=== PATIENT | male | born 1940 | race Caucasian/White ===

== ENCOUNTER → 2016-12-10 | Emergency (ER) | payer OTHER ==
[~2016-12-10] MED LIST: ASPIRIN 81 MG CHEWABLE TAB PO ONE; CEPHALEXIN 500MG PREPACK#4 BTL TAKEHOME ONE
--- NOTE | 2016-12-10 17:54 | EDPHY ---
H & P Stated Complaint: L VARICOSE VEIN NOW RED AND SWOLLEN HPI/ROS: CHIEF COMPLAINT: HISTORY OF PRESENT ILLNESS: REVIEW OF SYSTEMS: A ten point review of systems was performed and is negative with the exception of the items mentioned in the HPI. - Personal History Current Tetanus/Diphtheria Vaccine: Yes - Medical/Surgical History Hx Asthma: No Hx Chronic Respiratory Disease: No Hx Diabetes: No Hx Cardiac Disease: No Hx Renal Disease: No Hx Cirrhosis: No Hx Alcoholism: No Hx HIV/AIDS: No Hx Splenectomy or Spleen Trauma: No Other PMH: HTN - Social History Smoking Status: Never smoked - Physical Exam Exam: General Appearance: Alert. Vital signs reviewed. Blood pressure 132/95 Eyes: Pupils equal and round, no conjunctival injection, no discharge. Anicteric. ENT, Mouth: Mucous membranes are moist, no oropharyngeal erythema or edema. Neck: No lymphadenopathy, supple. Respiratory: Lungs are clear to auscultation; no wheezes, rales, or rhonchi. Cardiovascular: Regular rate and rhythm; no murmur, rub, or gallop. Gastrointestinal: Abdomen is soft and nontender, no masses or organomegaly, bowel sounds normal. Skin: Warm and dry, no rashes on exposed skin, normal color. Back: Nontender to palpation over the thoracolumbar spine. No CVAT. Extremities: No lower extremity edema, no calf tenderness or swelling. Neurological: Alert and oriented. Moving all four extremities easily and equally. Psychiatric: Normal affect. Constitutional: Initial Vital Signs Temperature (C) 36.6 C 12/10/16 17:45 Heart Rate 75 12/10/16 17:45 Respiratory Rate 20 12/10/16 17:45 Blood Pressure 132/95 H 12/10/16 17:45 O2 Sat (%) 96 12/10/16 17:45 O2 Delivery Mode Room Air Allergies/Adverse Reactions: No Known Allergies Allergy (Unverified 12/10/16 17:45) Home Medications: Medication Instructions Recorded Lisinopril 12/10/16 Departure - Departure Referrals: ANDREI ISSA [Other] - As per Instructions Physician Review and Approval Statement: 12/10/16 17:54 Portions of this note were transcribed by the chief medical director. I, Dr. Lily Lopez, personally performed the history, physical exam, and medical decision- making; and confirmed the accuracy of the information in the transcribed note.
--- NOTE | 2016-12-10 18:23 | EDPHY ---
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 Approximately 4 days ago he noticed erythema and swelling along the course of the vein. This is progressively worsened and become painful. He has had no fever. No nausea or vomiting. No discomfort in the calf or thigh or behind the leg. No shortness of breath or chest pain. He went to [facility] urgent care who referred him to the emergency department. REVIEW OF SYSTEMS: Aside from elements discussed in the HPI, a comprehensive 10-point review of systems was reviewed and is negative. PAST MEDICAL HISTORY: No history of DVTs or PEs. Hypertension. On lisinopril. Takes a baby aspirin. SOCIAL HISTORY: Nonsmoker. Active. VITAL SIGNS: see nurse's notes. GENERAL: Well-developed, well-nourished, in no acute distress. HEENT: Normal, no discharge or icterus, moist mucous membranes. Neck: supple, FROM. LUNGS: Clear to auscultation bilaterally, no wheezes, rhonchi or rales. CARDIAC: Regular rate and rhythm, no rubs, murmurs or gallops. ABDOMEN: Soft, nontender, nondistended, bowel sounds normal. BACK: No CVA tenderness. No vertebral tenderness. EXTREMITIES: Left lower extremity: Area of swelling and erythema in a linear distribution along the medial left lower extremity extending from mid calf to proximal thigh. Area is swollen, erythematous, palpable thrombus in the vein, and tender to palpation. 1+ pitting edema of the left lower extremity. Left calf and foot are swollen visibly in comparison to the right. NEURO: Alert and oriented, grossly nonfocal. SKIN: Warm and dry, no rash. - Personal History Current Tetanus/Diphtheria Vaccine: Yes - Medical/Surgical History Hx Asthma: No Hx Chronic Respiratory Disease: No Hx Diabetes: No Hx Cardiac Disease: No Hx Renal Disease: No Hx Cirrhosis: No Hx Alcoholism: No Hx HIV/AIDS: No Hx Splenectomy or Spleen Trauma: No Other PMH: HTN - Social History Smoking Status: Never smoked Constitutional: Initial Vital Signs Temperature (C) 36.6 C 12/10/16 17:45 Heart Rate 75 12/10/16 17:45 Respiratory Rate 20 12/10/16 17:45 Blood Pressure 132/95 H 12/10/16 17:45 O2 Sat (%) 96 12/10/16 17:45 O2 Delivery Mode Room Air Allergies/Adverse Reactions: No Known Allergies Allergy (Unverified 12/10/16 17:45) Home Medications: Medication Instructions Recorded Cephalexin [Keflex (RX)] 500 mg PO QID 6 Days 12/10/16 Lisinopril 12/10/16 ED Images - Extremities Legs Front/Back: 1 - erythema, tenderness, swelling, slight warmth Medical Decision Making - Diagnostics Imaging: Imaging Impressions Extremity Venous Study 12/10/16 18:18 Impression: No deep venous thrombosis left leg. Superficial thrombus in a branch from the greater saphenous vein in the mid thigh. Results called and discussed with Chioma Matthews MD at 12/10/2016 19:14. I discussed the results with the radiologist and reviewed the images myself. ED Course/Re-evaluation: 76-year-old male presents to the emergency department with a significant superficial thrombophlebitis and erythema on his left leg. The left lower leg is swollen. Ultrasound was performed to evaluate for any clot involving the deep system. This was negative. Patient was discharged on Keflex to use for cellulitis. He was also instructed regarding appropriate therapy for superficial thrombophlebitis and was asked to increase his aspirin for several days. He will follow up with his primary care physician next week. Differential Diagnosis: Differential diagnosis for the patient's primary complaint of leg swelling , pain, and redness was considered including but not limited to cellulitis, superficial thrombophlebitis, cellulitis, lymphangitic spread, deep space infection, and DVT. - Data Points Laboratory Results: Laboratory Results 12/10/16 18:41 12/10/16 18:41 12/10/16 12/10/16 18:41 18:41 WBC 6.88 10^3/uL 10^3/uL (3.80-9.50) RBC 4.28 10^6/uL L 10^6/uL (4.40-6.38) Hgb 13.6 g/dL L g/dL (13.7-17.5) Hct 41.1 % % (40.0-51.0) MCV 96.0 fL fL (81.5-99.8) MCH 31.8 pg pg (27.9-34.1) MCHC 33.1 g/dL g/dL (32.4-36.7) RDW 14.1 % % (11.5-15.2) Plt Count 219 10^3/uL 10^3/uL (150-400) MPV 9.9 fL fL (8.7-11.7) Neut % (Auto) 58.3 % % (39.3-74.2) Lymph % (Auto) 27.2 % % (15.0-45.0) Mcmullen % (Auto) 9.6 % % (4.5-13.0) Eos % (Auto) 4.4 % % (0.6-7.6) Baso % (Auto) 0.4 % % (0.3-1.7) Nucleat RBC Rel Count 0.0 % % (0.0-0.2) Absolute Neuts (auto) 4.01 10^3/uL 10^3/uL (1.70-6.50) Absolute Lymphs (auto) 1.87 10^3/uL 10^3/uL (1.00-3.00) Absolute Monos (auto) 0.66 10^3/uL 10^3/uL (0.30-0.80) Absolute Eos (auto) 0.30 10^3/uL 10^3/uL (0.03-0.40) Absolute Basos (auto) 0.03 10^3/uL 10^3/uL (0.02-0.10) Absolute Nucleated RBC 0.00 10^3/uL 10^3/uL (0-0.01) Immature Gran % 0.1 % % (0.0-1.1) Immature Gran # 0.01 10^3/uL 10^3/uL (0.00-0.10) Sodium 137 mEq/L mEq/L (134-144) Potassium 4.5 mEq/L mEq/L (3.5-5.2) Chloride 107 mEq/L mEq/L (97-110) Carbon Dioxide 20 mEq/l L mEq/l (22-31) Anion Gap 10 mEq/L mEq/L (8-16) BUN 21 mg/dL mg/dL (7-23) Creatinine 1.0 mg/dL mg/dL (0.7-1.3) Estimated GFR > 60 Glucose 88 mg/dL mg/dL (70-100) Calcium 9.0 mg/dL mg/dL (8.5-10.4) Medications Given: Discontinued Medications Aspirin (Aspirin) 324 mg PO EDNOW ONE Stop: 12/10/16 19:21 Last Admin: 12/10/16 19:38 Dose: 324 mg Cephalexin (Keflex 500 Mg Prepack#4) 1 btl TAKEHOME EDNOW ONE PRN Reason: Protocol Stop: 12/10/16 19:20 Last Admin: 12/10/16 19:38 Dose: 1 btl Departure - Departure Disposition: Home, Routine, Self-Care Clinical Impression: Superficial thrombophlebitis of left leg Condition: Good Instructions: Superficial Thrombophlebitis (ED) Additional Instructions: The ultrasound demonstrates clot in a the branch of the greater saphenous vein. There is no clot in the deep venous system. I recommend aspirin 324mg a day for 3-4 days. This will help prevent further clot from forming. Then you should decrease to 81 mg a day. You should take ibuprofen 400-600 mg every 6-8 hours for pain and to help with inflammation. Begin taking the Keflex 500 mg by mouth 4 times a day for the next 7 days. This will help treat any infection of the skin. Warm compresses applied to the leg several times a day will also help to break up the superficial clot. Referrals: ANDREI ISSA [Other] - As per Instructions Prescriptions: Cephalexin [Keflex (RX)] 500 mg PO QID 6 Days
[2016-12-10 18:51] LABS: % IMMATURE GRANULYOCYTES 0.1 % (0.0-1.1); ABSOLUTE IMMATURE GRANULOCYTES 0.01 10^3/uL (0.00-0.10); ADD DIFF? NO; ADD MORPH? NO; ADD SCAN? NO; ATYPICAL LYMPHOCYTE FLAG 0 (0-99); FRAGMENT RBC FLAG 0 (0-99); HEMATOCRIT 41.1 % (40.0-51.0); HEMOGLOBIN 13.6 g/dL (13.7-17.5); LEFT SHIFT FLG 0 (0-99); LIPEMIA HEMOLYSIS FLAG 80 (0-99); MEAN CELL HEMOGLOBIN 31.8 pg (27.9-34.1); MEAN CELL HEMOGLOBIN CONCENTR. 33.1 g/dL (32.4-36.7); MEAN PLATELET VOLUME 9.9 fL (8.7-11.7); PLATELET CLUMPS FLAG 0 (0-99); PLATELET COUNT 219 10^3/uL (150-400); RED BLOOD CELL COUNT 4.28 10^6/uL (4.40-6.38); RED CELL DISTRIBUTION WIDTH 14.1 % (11.5-15.2)
[2016-12-10 19:06] LABS: ANION GAP 10 mEq/L (8-16); CARBON DIOXIDE 20 mEq/l (22-31); CHLORIDE 107 mEq/L (97-110); GLOMERULAR FILTRATION RATE > 60; GLUCOSE 88 mg/dL (70-100); POTASSIUM 4.5 mEq/L (3.5-5.2); SODIUM 137 mEq/L (134-144)
[2016-12-10 19:45] VITALS: BP 135/97; PULSE 74; RESP 16; TEMP 98.2; O2SAT 94
== END | disposition home or self-care (01) ==
DX: I80.02 Phlebitis and thrombophlebitis of superficial vessels of left lower extremity (principal); I10 Essential (primary) hypertension